=== PATIENT | female | born 1985 | race Caucasian/White ===

== ENCOUNTER → 2020-09-06 11:08 | Outpatient (CLI) | payer BC, SELFPAY ==
--- NOTE | ~2020-09-06 | US_ITS ---
EXAMINATION: US pelvic complete w TV DATE: 09/06/2020 11:27 INDICATION: Dysmenorrhea. Painful periods. Comparison:No prior studies for comparison. TECHNIQUE: Multiple transabdominal and endovaginal sonographic images of the pelvis performed. FINDINGS: The uterus measures 7.4 x 4 x 4.7 cm. The endometrial complex measures 8 mm. The right ovary measures 1.7 x 1.6 x 2.5 cm and the left ovary measures 2.1 x 1.6 x 2.6 cm. There ar e small follicles in each ovary. Normal doppler signal in both ovaries. There is no free fluid in the pelvis. There are no abnormal masses seen on either side. IMPRESSION: 1. Normal pelvic ultrasound. Reviewed, dictated and finalized at location A.
== END ==
PROVIDERS: Visit Provider Nurse Practitioner
DX: N94.6 Dysmenorrhea, unspecified (principal)
CPT/HCPCS: 76830; 76856

== ENCOUNTER 2024-01-22 05:18 | Inpatient (IN) | payer BC, SELFPAY ==
[2024-01-22] VITALS (127 sets, daily range): BP systolic 82–133; BP diastolic 49–85; PULSE 64–142; RESP 18; TEMP 36.4–36.9; O2SAT 87–100; BMI 23.8
--- NOTE | 2024-01-22 05:18 | LDADM ---
This patient, Sheree Tanner, was admitted to Labor/Delivery/Recovery 108 on 01/22/24 at 05:18. Plans for labor, pain management and were discussed with patient. Patient/family oriented to hospital policies and general routines including ID bracelet, bed and alarms, visiting hours, pain management, procedures, bathroom and other care routines, personal items, smoking policy, room service/diet and guest tray routines, infant security routines, and visiting hours. Patient/Family are encouraged to report perceived risks to care and to ask questions if they do not understand what they are told or what they should do. See OBIX for further documentation.
[2024-01-22 05:52] LABS: Basophils Absolute Auto 0.1 K/mm3 (0.0-0.1); Basophils Percent Auto 0.5 % (0.2-1.2); Eosinophils Absolute Auto 0.1 K/mm3 (0-0.3); Eosinophils Percent Auto 0.7 % (0-4.4); Hematocrit 36.1 % (37.0-47.0); Hemoglobin 11.6 g/dL (12.0-15.0); Immature Granulocyte Absolute 0.12 K/mm3 (0.00-0.031); Immature Granulocyte Percent A 1.1 % (0-0.5); Lymphocytes Absolute Auto 1.91 K/mm3 (0.9-3.2); Mean Corpuscular HGB Conc 32.1 g/dl (32-36); Mean Corpuscular Hemoglobin 30.9 pg (26-34); Mean Platelet Volume 11.7 fl (7.4-10.4); Monocytes Absolute Auto 0.8 K/mm3 (0.1-0.6); Monocytes Percent Auto 7.8 % (2.6-8.5); Neutrophils Absolute Auto 7.6 K/mm3 (1.3-6.7); Neutrophils Percent Auto 71.9 % (45.5-73.1); Platelet Count Result 199 k/mm3 (150-375); Red Blood Count 3.76 M/mm3 (4.2-5.4); Red Cell Distribution Width 14.2 % (11.5-14.5); White Blood Count 10.6 K/mm3 (4.5-10.0)
[2024-01-22] MEDS: LACTATED RINGERS 1,000 ML 125 ML IV CONT ×2 (06:35→10:06)
[2024-01-22] MEDS: OXYTOCIN 30 UNITS/NS 500 ML 30 UNITS/500 ML BAG 6 UNITS IV CONT (06:36)
[2024-01-22 06:39] LABS: HIV 1/2 Ab P24 Ag Result Negative (Negative)
[2024-01-22 08:05] LABS: Rapid Plasma Reagin Non-Reactive (NonReactive)
--- NOTE | 2024-01-22 08:41 | PM.IMHP ---
H&P: HPI History of Present Illness Date/Time: 01/22/24 08:41 Chief Complaint: Here for induction of labor. Narrative: 38 y/o G1 at 40 4/7 weeks here for induction of labor because of mild oligohydramnios. GBS neg. Review of Systems Review of Systems: All systems reviewed & are unremarkable except as noted in HPI and below PMFSH Family History Family History Mother Narcolepsy A-fib Sibling Hereditary spherocytic hemolytic anemia Social History Social History Smoking status: Former smoker Tobacco type: e-cigarettes/vaping Second hand tobacco smoke exposure: Yes Substance use: never Do You Feel Safe in your Home?: Yes Lack of Transportation: No Lack of Food: Never True Current Housing: I Have Housing Concerned About Future Housing: No Difficulty Paying Gas/Electric Bills: No Difficulty Paying for Meds: No Currently Unemployed: No Education: Bachelor's Degree Difficulty w/ Childcare or Family Care: No Spiritual care concerns: No Meds Home Medications and Allergies Home Medications Medication Instructions Recorded Confirmed Type vits no.126-ferrous fum 1 tablet PO DAILY 12/19/23 01/22/24 History 28 mg iron-folic acid 800 mcg tablet (Classic ) famotidine 20 mg tablet 20 mg PO BID 01/22/24 01/22/24 History (Zantac-360 (famotidine)) Allergies Allergy/AdvReac Type Severity Reaction Status Date / Time No Known Allergies Allergy Verified 12/19/23 14:21 Vital Signs Vital Signs - 24 hr 01/22/24 05:53 01/22/24 05:45 01/22/24 06:00 Temperature Pulse Rate 73 77 Blood Pressure 118/82 128/76 Oxygen Delivery Room Air 01/22/24 06:15 01/22/24 06:45 01/22/24 06:33 Temperature 36.5 C Pulse Rate 81 78 Blood Pressure 111/81 109/75 Oxygen Delivery 01/22/24 07:00 01/22/24 07:15 01/22/24 07:30 Temperature Pulse Rate 80 76 77 Blood Pressure 114/82 107/69 111/75 Oxygen Delivery 01/22/24 08:00 01/22/24 08:15 01/22/24 08:30 Temperature Pulse Rate 80 87 75 Blood Pressure 108/74 109/72 117/84 Oxygen Delivery Exam Const: Orientation/consciousness: patient oriented x3 Other: Well-developed, well-nourished female in no acute distress. Neck: Thyroid: thyroid normal Lymphatic: no lymphadenopathy noted (in neck, axilla or inguinal nodes) Resp: Effort & Inspection: normal respiratory effort Auscultation: clear to auscultation bilaterally Cardio: Rate: regular rate Rhythm: regular rhythm Heart sounds: S1 normal heart sound present and S2 normal heart sound present GI: Other: ABD: Soft, nontender, nondistended, gravid. NST reactive. TOCO: contractions every 2-4 min. No guarding or rebound tenderness. No hepatosplenomegaly. : General: Yes no CVA tenderness Other: Cervix 2-3/80/-2. AROM with meconium-stained fluid. Vertex. Back/Spine/Pelvis: Back: no CVA tenderness Skin: General skin exam: normal color and no rashes or lesions noted Neuro: General: patient oriented x3 Extrem: Other: Extremities: nontender with no edema Psych: Mental Status: mental status grossly normal Affect: normal affect H&P: Results Labs Labs: Short CBC 01/22/24 Range/Units 05:28 WBC 10.6 H (4.5-10.0) K/mm3 Hgb 11.6 L (12.0-15.0) g/dL Hct 36.1 L (37.0-47.0) % Plt Count 199 (150-375) k/mm3 Assessment and Plan Assessment and plan (1) Term : Code(s): Z34.90 - Encounter for supervision of normal , unspecified, unspecified trimester Status: Acute Assessment and Plan: A: IUP at 40 4/7 weeks with oligohydramnios. P: Offered induction of labor. Reviewed risks, benefits, alternatives, and she agrees. Receiving oxytocin. Peds aware of meconium. Anticipate . (2) Oligohydramnios in third trimester: Code(s): O
--- NOTE | 2024-01-22 11:04 | WPDANESEPP ---
Anes - Eval Pre Procedure Procedure: labor pain management Date/Time: 01/22/24 11:04 Surgeon: Dalton Preop Diagnosis: pain during labor Pre Op Diagnosis: IOL Patient Data Age: 38 Gender: F Height: 1.7 m Weight: 69 kg Last Vital Signs Temp 97.7 F 01/22/24 06:33 Pulse 74 01/22/24 11:03 BP 102/63 01/22/24 11:03 Pulse Ox 96 01/22/24 11:03 O2 Del Method Room Air 01/22/24 05:53 Allergies Allergy/AdvReac Type Severity Reaction Status Date / Time No Known Allergies Allergy Verified 12/19/23 14:21 Home Medications Medication Instructions Recorded Confirmed Type vits no.126-ferrous fum 1 tablet PO DAILY 12/19/23 01/22/24 History 28 mg iron-folic acid 800 mcg tablet (Classic ) famotidine 20 mg tablet 20 mg PO BID 01/22/24 01/22/24 History (Zantac-360 (famotidine)) Laboratory Tests 01/22/24 05:28 WBC 10.6 H K/mm3 (4.5-10.0) RBC 3.76 L M/mm3 (4.2-5.4) Hgb 11.6 L g/dL (12.0-15.0) Hct 36.1 L % (37.0-47.0) MCV 96.0 fl (80-100) MCH 30.9 pg (26-34) MCHC 32.1 g/dl (32-36) RDW 14.2 % (11.5-14.5) Plt Count 199 k/mm3 (150-375) MPV 11.7 H fl (7.4-10.4) Immature Gran % (Auto) 1.1 H % (0-0.5) Neut % (Auto) 71.9 % (45.5-73.1) Lymph % (Auto) 18.0 L % (18.3-44.2) [place] % (Auto) 7.8 % (2.6-8.5) Eos % (Auto) 0.7 % (0-4.4) Baso % (Auto) 0.5 % (0.2-1.2) Lymph # (Auto) 1.91 K/mm3 (0.9-3.2) [place] # (Auto) 0.8 H K/mm3 (0.1-0.6) Eos # (Auto) 0.1 K/mm3 (0-0.3) Baso # (Auto) 0.1 K/mm3 (0.0-0.1) Abs Immat Gran (auto) 0.12 H K/mm3 (0.00-0.031) Absolute Neuts (auto) 7.6 H K/mm3 (1.3-6.7) Absolute Nucleated RBC 0.000 K/mm3 (0.0-0.012) Nucleated RBC % 0.0 % (0.0-0.2) RPR Non-reactive (NonReactive) HIV 1&2 Ab/P24 Ag 4thGn Negative (Negative) Blood Type A Positive Antibody Screen Negative Patient hx anesthesia problems: none Family hx anesthesia problems: none Results Review: All pre-operative results and documents have been reviewed as part of the pre-operative evaluation. [facility] Family History Family History Mother Narcolepsy A-fib Sibling Hereditary spherocytic hemolytic anemia Social History Social History Smoking status: Former smoker Tobacco type: e-cigarettes/vaping Second hand tobacco smoke exposure: Yes Substance use: never Do You Feel Safe in your Home?: Yes Lack of Transportation: No Lack of Food: Never True Current Housing: I Have Housing Concerned About Future Housing: No Difficulty Paying Gas/Electric Bills: No Difficulty Paying for Meds: No Currently Unemployed: No Education: Bachelor's Degree Difficulty w/ Childcare or Family Care: No Spiritual care concerns: No Exam Day of Procedure 01/22/24 11:04
--- NOTE | 2024-01-22 12:43 | PM.OBPNLAB ---
Pain Control Date/time seen: 01/22/24 12:43 Comments: Comfortable with epidural. Pelvic Exam Dilation (cm): 10 Effacement (%): 100 station: +1 Contractions Contraction frequency: 3 Contraction pattern: Regular Status Comments: Reactive, mild variables with early timing. Assessment and Plan Comments: Begin pushing.
--- NOTE | 2024-01-22 14:36 | P.PCNOB_ITS ---
OB - Vaginal Delivery Note Procedure Delivery date: 01/22/24 Events: Oligohydramnios Induction method: Per Pitocin Protocol Delivery augmentation: Rupture of Membranes and Pitocin Delivery monitor: External FHT, External Uterine and Internal Uterine Route of delivery: Episiotomy description: None Laceration Description: Perineal - 2nd Degree Delivery repair: vicryl (3-0) Specimen: Yes (cord blood, placenta) Quantitative Blood Loss (ml): 320 Anesthesia type: Epidural Disposition: PACU Complications: None Narrative: 38 y/o G1 at 40 4/7 weeks gestation who presented to the hospital for induction of labor. Oxytocin was administered intravenously. Amniotomy was performed with return of meconium-stained fluid. She received an epidural for pain control. Her labor progressed and her cervix dilated completely. She pushed with good effort and delivered the infant's head to the perineum, followed by the body. The nose and mouth were bulb suctioned. After a delay, the cord was clamped and cut. The was handed off the field. Cord blood was collected. The placenta delivered spontaneously and was grossly normal in appearance. A 3 vessel cord with a true knot was noted. A second degree midline perineal laceration was sustained. This was reapproximated using 3 0 Vicryl in the usual layered fashion. Excellent hemostasis resulted as did exce llent reapproximation of the normal anatomy. Needle and instrument counts were correct. The patient was taken to recovery room in stable condition. The infant went to the nursery in stable condition. I was present and scrubbed for the entire delivery. [place] Baby Date of : 01/22/24 Time of : 14:14 Gestational Age by Date: 40 Infant gender: Female presentation: vertex position: Right Occiput Anterior Placenta delivery description: Spontaneous and Normal Configuration Cord Vessel Description: 3 Vessels, True Knot and Delayed Cord Clamping
--- NOTE | 2024-01-22 14:39 | PM.OBDSVD ---
DS: Admitting Diagnosis Discharge Date 01/24/24 Admitting Diagnosis IUP at 40 4/7 weeks Oligohydramnios DS: Discharge Diagnosis Discharge Diagnosis (1) (normal spontaneous vaginal delivery): Code(s): O80 - Encounter for full-term uncomplicated delivery Status: Acute OB - DS: Summary OB Procedures : None OB Procedures Intrapartum: Spontaneous Vag Delivery OB Procedures: : None Peripartum Data Laceration Description: Perineal - 2nd Degree Episiotomy description: None Time Spent with Patient Time attestation: Total time spent providing and/or coordinating discharge services: DS: Data Data Completed and Pending Labs on day of discharge: Labs from last 24 hours 01/22/24 05:28 WBC 10.6 H RBC 3.76 L Hgb 11.6 L Hct 36.1 L MCV 96.0 MCH 30.9 MCHC 32.1 RDW 14.2 Plt Count 199 MPV 11.7 H Immature Gran % (Auto) 1.1 H Neut % (Auto) 71.9 Lymph % (Auto) 18.0 L [place] % (Auto) 7.8 Eos % (Auto) 0.7 Baso % (Auto) 0.5 Lymph # (Auto) 1.91 [place] # (Auto) 0.8 H Eos # (Auto) 0.1 Baso # (Auto) 0.1 Abs Immat Gran (auto) 0.12 H Absolute Neuts (auto) 7.6 H Absolute Nucleated RBC 0.000 Nucleated RBC % 0.0 RPR Non-reactive HIV 1&2 Ab/P24 Ag 4thGn Negative Blood Type A Positive Antibody Screen Negative Discharge Plan Discharge Attending physician on discharge: Matthew Hoffman Consulting providers: Olivia Christianson; Franchesca Fay Discharging Clinician: Paola Valero Patient Disposition: Home, Self-Care Activity: pelvic rest Diet: regular Discharge Instructions: Education: Mom and Baby Guide Given to: Mother Follow-Up: Call your delivering provider's office for an appointment to be seen in: 6 Weeks Mom and baby should come to the [facility] for the follow-up appointment. Appointment Date/Time: Friday, January 26, 2024 at 11:00 a.m. What to expect at your follow-up visit: Blood Pressure Check Physical Assessment Call [phone] if you are unable to keep your appointment time. BREAST CARE: * Wear a snug supportive bra. * For engorgement discomfort: Breast Feeding: * Apply warm moist washcloths * Express milk as needed to relieve engorgement * Wear loose clothing * For sore nipples: * Identify correct latch-on * Apply warm moist washcloths before and after nursing * Air dry nipples after nursing * May apply Lansinoh cream to nipples EPISIOTOMY/PERINEAL CARE: * Until bleeding stops, use your digna bottle after urinating * Change your pad frequently throughout the day * You may take sitz baths several times a day (fill your bathtub with warm water and soak for 20 minutes.) Do NOT bathe in the water * No tub baths until seen by your physician - You may shower ACTIVITY: * Rest as much as possible. * Do not exercise or lift anything heavier than your baby (such as laundry or other children.) * Avoid stairs or driving as much as possible. * Do not put anything into the vagina. No douching, tampons, or sexual activity until seen by physician. NOTIFY PHYSICIAN IF YOU HAVE ANY QUESTIONS OR IF ANY OF THE FOLLOWING SYMPTOMS OCCUR: * If your perineum becomes red, swollen, or more painful than what you have experienced in the hospital. * If your vaginal bleeding becomes foul smelling. * If your vaginal bleeding becomes more heavy than a period or if your bleeding changes from pink to bright red. However, you may pass an occasional walnut-sized clot once or twice for the first week . * If you experience a sharp, shooting pain in you calves. * If you discover a hard, reddened area on your breast or if you experience flu-like symptoms. DIET: * Eat regular, well-balanced meals. * Drink plenty of fluids daily. If , drink to thirst. Call or return if temperature above 100.4? F, increased abdominal pain,
[2024-01-22] MEDS: OXYTOCIN 30 UNITS/NS 500 ML 30 UNITS/500 ML BAG 125 UNITS IV CONT (14:48)
--- NOTE | 2024-01-22 17:30 | OBPPTRN ---
Patient transferred to post room # 285 via wheelchair. Support person present. Oriented to unit, room, information board, rooming in, admission packet and security measures. Patient verbalizes understanding.
[2024-01-22] MEDS: IBUPROFEN 600 MG TABLET PO (21:42)
[2024-01-23 05:26] VITALS: BP 110/64; PULSE 97; RESP 16; TEMP 36.7; O2SAT 97
[2024-01-23 05:26] LABS: Hematocrit 26.8 % (37.0-47.0); Hemoglobin 8.8 g/dL (12.0-15.0)
--- NOTE | 2024-01-23 07:46 | WPDANLDPN2 ---
Anes-Prog Note L&D Date/Time: 01/23/24 07:46 Neuro status: Neuro function grossly intact. Cardiovascular status: normal Respiratory status: normal Airway patency: baseline Mental status: baseline Post-Op hydration status: normal Vital Signs: Last Vital Signs Temp 36.7 C 01/23/24 05:26 Pulse 97 01/23/24 05:26 Resp 16 01/23/24 05:26 BP 110/64 01/23/24 05:26 Pulse Ox 97 01/23/24 05:26 O2 Del Method Room Air 01/22/24 05:53 Pain score (VAS): 0 I/O: Intake & Output 01/22/24 01/22/24 01/23/24 15:59 23:59 07:59 Intake Total 1000 Output Total 320 100 Balance 680 -100 Post-procedural complaints: none Patient feedback: Patient satisfied with anesthetic care.
[2024-01-23 08:00] VITALS: PULSE 78; RESP 16; O2SAT 99
[2024-01-23 08:05] VITALS: BP 104/69; PULSE 78; RESP 16; TEMP 36.7; O2SAT 99
[2024-01-23] MEDS: POLYSACCHARIDE IRON COMPLEX 150 MG CAPSULE PO ×2 (08:32→17:43)
[2024-01-23] MEDS: IBUPROFEN 600 MG TABLET PO ×3 (08:32→22:08)
[2024-01-23] MEDS: DOCUSATE SODIUM 100 MG CAPSULE PO ×2 (08:32→17:43)
[2024-01-23] MEDS: MULTIVIT/MIN/PREN/FOL AC/IRON TABLET 1 TAB PO (08:32)
--- NOTE | 2024-01-23 11:56 | PC.NURSE ---
1130. Met with Sheree to assess and discuss needs related to feeding. Mother states it is her intention to exclusively breastfeed if she is able to do so with minimal pain because of her inverted nipples. She states her second choice would be to pump and feed or combo feed if she is unsuccessful latching baby to the breast or continues to have severe pain due to her inverted nipples. Mom is currently using a nipple shield on both nipples. We reviewed using the nipple shield, correct placement and application, cleaning, latching baby on the shield, and how to transition off the nipple shield to being baby to the breast. Encouraged mother to breastfeed every 2-3 hours, watching for early feeding cues. If is sleepy, unwrap and place baby skin to skin. Discussed signs that infant is effectively , i.e. sufficient voids and stools, jaundice within normal limits, <10% weight loss from . Mother educated on milk production, supply and demand, and expectations for in the immediate period. We discussed some of the negative side effects of using a shield and the potential for a decrease in milk supply with prolonged use. Encouraged feeding on demand and feeding durations of 15 minutes or greater. Mothers nipples measured for correct size flange to be used with pumping. Discussed breast/nipple care with good hand hygiene, signs of a correct latch, listening for infant swallows and documenting feedings on the feeding sheet. Mother instructed to call for assistance if infant will not feed every 3 hours, if there is discomfort with , or if mother has any other questions or concerns. resources provided including the Mom and Baby Guide, breastmilk storage guideline handout, and nipple measuring handout. Mother verbalized understanding. Updated patient?s primary RN with education provided.
--- NOTE | 2024-01-23 12:43 | PM.OBPNVD ---
OB - PN: Subj Subjective Date/time seen: 01/23/24 12:43 Narrative: Pain OK. OB - PN: Obj Data Labs 01/23/24 05:12 Labs: Laboratory Results - last 24 hr 01/23/24 05:12 Hgb 8.8 L Hct 26.8 L OB - PN A/P Plan Comments: A: PPD#1, doing well. P: Routine care. Exam Psych: Other: AVSS ABD soft, nontender, fundus firm EXT nontender
--- NOTE | 2024-01-23 16:13 | PC.NURSE ---
1200. Nipple shield provided to mother due to bilateral inverted nipples. Reviewed good handwashing, cleaning the nipple shield and the appropriate way to apply and use as a tool. Discussed with mom the nipple shield precautions, possible complications associated with the risks and benefits. Reviewed practicing with a nipple shield, then without and how to protect the milk supply and production. Mom and baby guide referred to as a resource for outpatient services, community resources and when to call a provider. Mom voiced understanding of the importance of hand expression, nipple stimulation and initiating a pumping schedule if continues to nurse with the shield. Reported to the Primary RN.
[2024-01-23 21:58] VITALS: BP 117/69; PULSE 83; RESP 16; TEMP 36.9; O2SAT 98
[2024-01-24 08:00] VITALS: BP 107/69; PULSE 85; RESP 16; TEMP 36.8; O2SAT 99
--- NOTE | 2024-01-24 09:07 | PM.OBPNVD ---
OB - PN: Subj Subjective Date/time seen: 01/24/24 09:07 Patient comments: no complaints and pain well controlled baby status: doing well OB - PN: Obj Data Labs 01/23/24 05:12 OB - PN A/P Plan day: 2 Plan: routine care, discharge home and follow up 6 weeks Time Spent With Patient Time: Total time spent is greater than 50% in coordination of care (as documented) at patient's floor/unit and/or counseling patient: Exam : Bimanual exam- vagina & uterus: other (Uterus firm, nt @U)
[2024-01-24] MEDS: IBUPROFEN 600 MG TABLET PO (09:31)
[2024-01-24] MEDS: MULTIVIT/MIN/PREN/FOL AC/IRON TABLET 1 TAB PO (09:32)
[2024-01-24] MEDS: DOCUSATE SODIUM 100 MG CAPSULE PO (09:32)
[2024-01-24] MEDS: POLYSACCHARIDE IRON COMPLEX 150 MG CAPSULE PO (09:32)
--- NOTE | 2024-01-24 10:30 | PC.NURSE ---
Consulted with mother concerning needs and she shared her ability to independently latch infant with the nipple shield. Mother states her nipples are very painful, especially at the initial feeding latch on. Baby has cluster fed through the night and is more sleepy this morning. We reviewed that 8-12 feedings each 24 hours is the goal, not necessarily going by the clock when baby is cluster feeding. Mother is going to try the 24mm flanges at the next pumping to see if they are more comfortable than the 21mm. We discussed pump care and checking her Spectra pump user guide for exact pump instruction. We spoke about good hand hygiene and nipple care/healing. Mother will call out for a latch check with the nipple shield prior to discharge. Mother is feeding appropriately for growth of and understands stimulating to eat if needed. has had appropriate feedings in the last 24 hours meets the outcomes for weight, output, blood sugar and jaundice at this time. Reinforced understanding of milk production, transition of milk, signs of adequate intake, transition of stool, prevention/relief of engorgement, plugged ducts, mastitis, responsive watching for feeding cues, the different methods of stimulating infant to breastfeed 1-3 hours after the start of the last feeding, community resources, and when to call a provider using the resource of the feeding sheet along with the mom and baby guide. Mother voiced understanding of the information shared, is confident to continue effectively her infant at home, when to call for assistance, denies any additional assistance or education at this time. Reported to the Primary RN.
--- NOTE | 2024-01-24 12:30 | PC.NURSE ---
Called to patient room for feeding. Mother correctly applied the nipple shield and latched baby. We discussed keeping baby close to the breast and not letting the shield slide in and out of baby's mouth as she sucks. Mother verbalized understanding and demonstrated holding baby close and maintaining a deep latch. Mother was tearful when we discussed milk production and supplementation as recommended by Dr. Chavez. Educated mother that the pump is not necessarily a good indicator of milk production or supply. We discussed adding in supplementation (10-15 mls, increasing if needed) after always putting baby to breast first. We also discussed weaning from the nipple shield, but mom seems reluctant to try since baby was not able to latch previously without it. was sucking consistently and maintained the deep latch as we talked. Reassured mom that a lot of women pump more volume initially but don't get much after that until their milk comes in. Mother knows that our team is available for outpatient appointments if needed. Patient seems comfortable with the plan discussed. Reported to primary RN.
--- NOTE | 2024-01-24 13:06 | PC.NURSE ---
Patient viewed the discharge video Mother & Baby Care, The First Two Weeks . Patient was given the opportunity and encouraged to ask questions. Patient verbalized understanding of information shared and has been given the mother/baby guide for home reference.
[2024-01-26 11:55] VITALS: BP 109/63; PULSE 72; RESP 20; TEMP 36.9; O2SAT 99
== END 2024-01-24 14:35 | disposition home or self-care (01) | DRG 807 ==
LOC: ANHLDR 14:40 → ANHOB2 01-24 12:36 → ANHLDR 01-27 07:49
PROVIDERS: Admitting Provider Obstetrics & Gynecology; Visit Provider Obstetrics & Gynecology Gynecology
DX: O41.03X0 Oligohydramnios, third trimester, not applicable or unspecified (principal); Z37.0 Single live birth; Z3A.40 40 weeks gestation of pregnancy; O70.1 Second degree perineal laceration during delivery; O77.0 Labor and delivery complicated by meconium in amniotic fluid
CPT/HCPCS: 36415; 59025; 76816; 85014; 85018; 85025; 86592; 86703; 86850; 86900; 86901; 88307; A9270; G0432; J2590; J2795; J7120